=== PATIENT | female | born 1980 | race Hispanic/Latino ===

== ENCOUNTER 2021-09-01 12:40 | Emergency (ER) | payer BC, OTHER ==
[~2021-09-01] VITALS: Ht 160 cm; Wt 92.1 kg
[2021-09-01 12:42] VITALS: BP 135/85
[2021-09-01] MEDS ORDERED: DEXAMETHASONE 4 MG TAB PO SCH (13:30)
[2021-09-01] MEDS ORDERED: KETOROLAC 60 MG VIAL (30MG/ML) IM ONE (13:30)
[2021-09-01] MEDS ORDERED: IBUP-2077 PO (14:30)
[2021-09-01] MEDS ORDERED: CYCL10TA16 PO (14:30)
[2021-09-01] MEDS ORDERED: METH4TAB3 PO (14:34)
== END 2021-09-01 14:45 | disposition home or self-care (01) ==
LOC: EDH 12:40
DX: M54.10 Radiculopathy, site unspecified (principal); M79.605 Pain in left leg; M51.26 Other intervertebral disc displacement, lumbar region; I10 Essential (primary) hypertension; Z79.899 Other long term (current) drug therapy; Z98.890 Other specified postprocedural states
CPT/HCPCS: 99284; 96372; J1885; J8540

== ENCOUNTER → 2022-08-15 | Outpatient (CLI) | payer BC ==
[~2022-08-15] MED LIST: CYCL10TA16 PO; IBUP-2077 PO; METH4TAB3 PO
== END | disposition home or self-care (01) ==
LOC: RAH 08:38
PROVIDERS: ATTEND Nurse Practitioner Adult Health
DX: Z12.31 Encounter for screening mammogram for malignant neoplasm of breast (principal)
CPT/HCPCS: 77067